=== PATIENT | female | born 1955 | race Caucasian/White ===

== ENCOUNTER → 2017-11-07 | Outpatient (CLI) | payer BC ==
--- NOTE | 2017-11-07 14:28 | RAD ---
Examination: Right knee, three views History: Fell, patellar pain Findings: There is no evidence for fracture or dislocation, patellar displacement or synovial effusio n. Impression: No acute injury demonstrated. Reported By:
== END ==
LOC: RAD 12:54
PROVIDERS: ATTEND Internal Medicine
DX: M25.561 Pain in right knee (principal)
CPT/HCPCS: 73560